=== PATIENT | female | born 1975 | race Caucasian/White ===

== ENCOUNTER 2018-04-18 21:00 | Emergency (ER) | payer BC ==
[~2018-04-18] VITALS: Ht 172.7 cm; Wt 78.9 kg
--- OUTSIDE RECORDS SUMMARY | 2018-04-18 21:03 | XMS REPORT ---
Author Author [facility] Address Unknown Phone Unavailable Care Team Providers Care Stain Dipper Name Role Phone Unavailable Unavailable Payers Payer Name Policy Type Policy Number Effective Date Expiration Date Problems This patient has no known problems. Allergies, Adverse Reactions, Alerts Allergy Name Allergy Type Status Severity Reaction(s) Onset Date Inactive Date Treating Clinician Comments meperidine HCl DA Active U 2009-04-08 00:00:00 codeine DA Active U 2009-04-08 00:00:00 Medications This patient has no known medications.
[2018-04-18 22:05] LABS: BASOPHILS % 0.4 % (0.0-1.0); EOSINOPHILS # (AUTO) 0.1 (0.0-0.4); EOSINOPHILS % 1.2 % (0.0-6.0); HEMATOCRIT 40.4 % (34.2-44.1); HEMOGLOBIN 13.5 g/dL (12.0-16.0); LYMPHOCYTES # (AUTO) 1.5 (1.0-3.2); LYMPHOCYTES % 20.4 % (18.0-39.1); MEAN CORPUSCULAR HEMOGLOBIN 32.3 pg (28-32); MEAN CORPUSCULAR HGB CONC 33.4 g/dL (31-35); MEAN CORPUSCULAR VOLUME 96.7 fL (81-99); MONOCYTES # (AUTO) 0.5 (0.2-0.8); MONOCYTES % 7.3 % (4.4-11.3); NEUTROPHILS # (AUTO) 5.1 (2.1-6.9); NEUTROPHILS % 70.3 % (38.7-80.0); PLATELET COUNT 280 x10e3/uL (140-360); RED BLOOD COUNT 4.18 x10e6/uL (3.6-5.1); RED CELL DISTRIBUTION WIDTH 12.6 % (11.7-14.4)
[2018-04-18 22:26] LABS: BILIRUBIN,URINE NEGATIVE (NEGATIVE); CLARITY,URINE HAZY (CLEAR); COLOR,URINE YELLOW (YELLOW); KETONES,URINE NEGATIVE (NEGATIVE); LEUKOCYTE ESTERASE ,URINE TRACE (NEGATIVE); NITRITE,URINE NEGATIVE (NEGATIVE); PROTEIN,URINE DIPSTICK NEGATIVE (NEGATIVE); URINE UROBILINOGEN 0.2 mg/dL (0.2 - 1)
[2018-04-18 22:27] LABS: PREGNANCY TEST, URINE NEGATIVE (NEGATIVE)
[2018-04-18 22:33] LABS: ALANINE AMINOTRANSFERASE 51 IU/L (0-55); ALBUMIN 4.4 g/dL (3.5-5.0); ALBUMIN/GLOBULIN RATIO 1.6 (0.8-2.0); ALKALINE PHOSPHATASE 75 IU/L (40-150); AMYLASE 33 U/L (25-125); ANION GAP 14.4 mmol/L (8-16); BLOOD UREA NITROGEN 19 mg/dL (7-26); BUN/CREATININE RATIO 18 (6-25); CALCIUM 9.5 mg/dL (8.4-10.2); CARBON DIOXIDE 24 mmol/L (22-29); CHLORIDE 101 mmol/L (98-107); CREATINE KINASE 262 IU/L (29-168); CREATININE, SERUM 1.06 mg/dL (0.57-1.11); EST GLOMERULAR FILTRATION RATE 56 ML/MIN (60-); GLUCOSE 95 mg/dL (74-118); LIPASE 25 U/L (8-78); POTASSIUM 3.4 mmol/L (3.5-5.1); SODIUM 136 mmol/L (136-145)
[2018-04-18 22:54] LABS: BACTERIA,URINE FEW /HPF; EPITHELIAL CELLS,URINE MANY /LPF; RBC,URINE 0-5 /HPF (0-5); WBC,URINE (MAN) 0-5 /HPF (0-5)
--- NOTE | 2018-04-18 23:00 | Diagnostic Imaging Report ---
EXAM: XR CHEST 2 VIEWS DATE: 04/18/2018 9:52 PM INDICATION: Pain COMPARISON: None FINDINGS: Lines and Tubes: None Heart and Mediastinum: No acute cardiomediastinal findings. Lungs and Pleura: No significant pleural effusion, pneumothorax, or focal consolidation. Bones and Soft Tissues: No acute findings. IMPRESSION: 1. No acute cardiopulmonary findings. Signed by: Dr. Collin Strickland MD on 04/18/2018 10:57 PM
[2018-04-19] MEDS ORDERED: KETOROLAC TROMETHAMINE 30 MG/ML VIAL IV STA (00:36)
== END 2018-04-19 01:05 | disposition home or self-care (01) ==
LOC: ER 21:00
DX: R07.89 Other chest pain (principal); S29.011A Strain of muscle and tendon of front wall of thorax, initial encounter; M62.838 Other muscle spasm
CPT/HCPCS: 36415; 71046; 80053; 81001; 81025; 82150; 82550; 82553; 83690; 84484; 85025; 93005; 99284; J1885